=== PATIENT | female | born 1990 | race Caucasian/White ===

== ENCOUNTER 2016-08-23 13:42 | Emergency (ER) | payer MEDICAID | END 2016-08-23 17:37 | disposition home or self-care (01) | LOC: D.ER 13:42 | DX: S61.255A Open bite of left ring finger without damage to nail, initial encounter (principal); W54.0XXA Bitten by dog, initial encounter; Y93.89 Activity, other specified; Y92.019 Unspecified place in single-family (private) house as the place of occurrence of the external cause; J45.909 Unspecified asthma, uncomplicated ==

== ENCOUNTER 2017-07-14 03:02 | Emergency (ER) | payer MEDICAID | END 2017-07-14 03:45 | disposition home or self-care (01) | LOC: D.ER 03:02 | DX: K02.9 Dental caries, unspecified (principal); K05.10 Chronic gingivitis, plaque induced ==

== ENCOUNTER 2017-11-07 19:54 | Emergency (ER) | payer MEDICAID ==
[~2017-11-07] VITALS: Ht 170.2 cm; Wt 125.0 kg
[2017-11-07 19:59] VITALS: Ht 170.2 cm; Wt 125.0 kg
[2017-11-07] MEDS ORDERED: ALDACTONE50 MG PO (20:04)
[2017-11-07] MEDS ORDERED: BIRTH CONTROL PILL (20:04)
[2017-11-07] MEDS ORDERED: EFFEXOR75 MG PO (20:04)
[2017-11-08] MEDS ORDERED: ZANTAC150 MG PO (02:31)
[2017-11-08] MEDS ORDERED: TYLENOL W/CODEI1 TAB PO (02:31)
[2017-11-08 03:42] LABS: HCG SERUM NEGATIVE (NEGATIVE)
[2017-11-08 03:50] VITALS: BP 151/85
== END 2017-11-08 03:51 | disposition home or self-care (01) ==
LOC: D.ER 19:54
PROVIDERS: Family Medicine
DX: K21.9 Gastro-esophageal reflux disease without esophagitis (principal); M54.2 Cervicalgia; M77.12 Lateral epicondylitis, left elbow

== ENCOUNTER 2018-01-26 15:51 | Emergency (ER) | payer MEDICAID ==
[~2018-01-26] VITALS: Ht 170.2 cm; Wt 125.0 kg
[~2018-01-26 15:51] MED LIST: ALDACTONE50 MG PO; BIRTH CONTROL PILL; EFFEXOR75 MG PO; TYLENOL W/CODEI1 TAB PO; ZANTAC150 MG PO
[2018-01-26 15:55] VITALS: BP 127/83; Ht 170.2 cm; Wt 125.0 kg
[2018-01-26 16:55] LABS: BASOPHILS 0.1 % (0-2); EOSINOPHILS 2.2 % (0-7); HEMATOCRIT 43.2 % (36.0-48.0); HEMOGLOBIN 13.9 g/dL (12-16); IMMATURE GRANULOCYTES 0.1 % (0-5); LYMPHOCYTES 29.8 % (15-50); MCH 28.3 pg (26.0-34.0); MCHC 32.2 g/dL (31.0-37.0); MEAN PLATELET VOLUME 10.4 fL (7.4-10.4); MONOCYTES 6.4 % (2-11); NEUTROPHILS 61.4 % (40-80); PLATELET COUNT 231 10x3/uL (130-400); RBC 4.91 10x6/uL (4.00-5.40); RDW 14.4 % (11.5-14.5); WBC 10.1 10x3/uL (4.8-10.8)
[2018-01-26 17:13] LABS: COLOR YELLOW (YELLOW)
[2018-01-26 17:14] LABS: ALBUMIN 3.3 g/dL (3.4-5.0); ALKALINE PHOSPHATASE 84 U/L (46-116); ALT (SGPT) 35 U/L (10-68); APPEARANCE CLEAR (CLEAR); BILIRUBIN NEGATIVE (NEGATIVE); BILIRUBIN - TOTAL 0.33 mg/dL (0.2-1.3); CALC OSMOLALITY 281 mosm/kg (275-300); CALCIUM 8.5 mg/dL (8.5-10.1); CARBON DIOXIDE 26.1 mmol/L (21.0-32.0); CHLORIDE - SERUM 106 mmol/L (98-107); CREATININE - SERUM 0.8 mg/dL (0.6-1.3); GLUCOSE 127 mg/dL (74-106); GLUCOSE NEGATIVE (NEGATIVE); KETONE NEGATIVE (NEGATIVE); NITRITE NEGATIVE (NEGATIVE); POTASSIUM - SERUM 3.5 mmol/L (3.5-5.1); PROTEIN NEGATIVE (NEGATIVE); PROTEIN - SERUM 7.3 g/dL (6.4-8.2); SODIUM 141 mmol/L (136-145); SPECIFIC GRAVITY 1.025 (1.005-1.020); UREA NITROGEN 10 mg/dL (7-18); UROBILINOGEN NORMAL (NORMAL); eGFR NON AFRICAN AMERICAN 90 mL/min (90-120)
[2018-01-26 17:15] LABS: BACTERIA FEW /hpf (NONE SEEN); RED CELLS - URINE 0-5 /hpf (0-5); WHITE CELLS - URINE OCC /hpf (0-5)
[2018-01-26 17:17] LABS: HCG SERUM NEGATIVE (NEGATIVE)
[2018-01-26] MEDS ORDERED: PREDNISONE10 MG PO (17:59)
[2018-01-26] MEDS ORDERED: AMOXICILLIN875 MG PO (17:59)
[2018-02-05 20:08] LABS: AEROBE ID Final report (())
== END 2018-01-26 18:41 | disposition home or self-care (01) ==
LOC: D.ER 15:51
PROVIDERS: Family Medicine
DX: J03.90 Acute tonsillitis, unspecified (principal); N39.0 Urinary tract infection, site not specified; F17.200 Nicotine dependence, unspecified, uncomplicated

== ENCOUNTER 2018-09-13 21:01 | Emergency (ER) | payer OTHER ==
[~2018-09-13] VITALS: Ht 170.2 cm; Wt 110.0 kg
[~2018-09-13 21:01] MED LIST changes: +AMOXICILLIN875 MG PO; +PREDNISONE10 MG PO
[2018-09-13 21:13] VITALS: Ht 170.2 cm; Wt 110.0 kg
[2018-09-13 22:53] VITALS: BP 134/72
== END 2018-09-13 23:19 | disposition home or self-care (01) ==
LOC: D.ER 21:01
DX: J02.0 Streptococcal pharyngitis (principal); R50.9 Fever, unspecified; R09.89 Other specified symptoms and signs involving the circulatory and respiratory systems

== ENCOUNTER 2019-02-24 21:15 | Emergency (ER) | payer OTHER ==
[~2019-02-24] VITALS: Ht 170.2 cm; Wt 97.7 kg
[2019-02-24 21:21] VITALS: Ht 170.2 cm; Wt 97.7 kg
[2019-02-24] MEDS ORDERED: EZFE 200200 MG (21:25)
[2019-02-24] MEDS ORDERED: CELEXA20 MG PO (21:25)
[2019-02-24] MEDS ORDERED: HYDROCODON-ACET15 ML PO (22:11)
[2019-02-24 22:27] VITALS: BP 137/73
== END 2019-02-24 22:27 | disposition home or self-care (01) ==
LOC: D.ER 21:15
DX: O26.92 Pregnancy related conditions, unspecified, second trimester (principal); Z3A.19 19 weeks gestation of pregnancy; T22.211A Burn of second degree of right forearm, initial encounter; W29.2XXA Contact with other powered household machinery, initial encounter; Y93.G9 Activity, other involving cooking and grilling; Y92.512 Supermarket, store or market as the place of occurrence of the external cause; J45.909 Unspecified asthma, uncomplicated; Z72.0 Tobacco use; T31.0 Burns involving less than 10% of body surface